=== PATIENT | female | born 1945 | race Caucasian/White ===

== ENCOUNTER 2016-05-01 11:28 | Inpatient (IN) | payer MEDICARE, OTHER ==
[~2016-05-01 11:28] MED LIST: ASPIR 8181 MG PO; ATORVASTATIN CA20 MG PO; ELIQUIS2.5 MG PO; FOLIC ACID 1 MG1 MG PO; FOLIC ACID0.4 MG PO; GLUCOSAMINE &1 EAC1 PO; GLUCOSAMINE CH1 EAC6 PO; IMDUR ER TAB 3030 MG PO; LIPITOR20 MG PO; LISINOPRIL5 MG PO; LOPRESSOR 25 MG25 MG PO; LYRICA20 MG/1 ML PO; LYRICA200 MG PO; METHOTREXATE T2.5 MG PO; OMEPRAZOLE40 MG PO; PERCOCET 5-3251 EACH PO; PREDNISONE 5 MG5 MG PO; PREDNISONE5 MG PO; RESTASIS1 EACH OP; ROPINIROLE HCL0.5 MG PO; SENOKOT-S TABL1 EACH PO; SERTRALINE HCL100 MG PO; VITAMIN D 11000 UNIT PO; VOLTAREN100 GM TP; WOMEN'S DAILY1 EACH PO; WOMEN'S MULTI200 MCG PO; ZANAFLEX 4 MG TA4 MG PO; ZANAFLEX4 M1 PO; ZOFRAN4 MG PO
[2016-05-01 19:16] LABS: HEMOGLOBIN 12.1 gm/dl (12.3-15.3); RED BLOOD COUNT 3.88 M/UL (4.00-5.10); WHITE BLOOD COUNT 9.3 K/UL (4.5-11.0)
[2016-05-01 19:29] LABS: BUN/CREATININE RATIO 23 (0-10)
[2016-05-02 07:02] LABS: RED BLOOD COUNT 3.55 M/UL (4.00-5.10)
[2016-05-02 07:08] LABS: WHITE BLOOD COUNT 6.2 K/UL (4.5-11.0)
[2016-05-02 07:35] LABS: BUN/CREATININE RATIO 27 (0-10)
[2016-05-03 05:21] LABS: HEMOGLOBIN 11.5 gm/dl (12.3-15.3); RED BLOOD COUNT 3.7 M/UL (4.00-5.10)
[2016-05-03 05:22] LABS: WHITE BLOOD COUNT 8.3 K/UL (4.5-11.0)
[2016-05-03 05:38] LABS: BUN/CREATININE RATIO 26 (0-10)
[2016-05-03 17:53] LABS: HEMOGLOBIN 8.6 gm/dl (12.3-15.3)
[2016-05-04 03:59] LABS: RED BLOOD COUNT 3.62 M/UL (4.00-5.10)
[2016-05-04 04:00] LABS: HEMOGLOBIN 10.6 gm/dl (12.3-15.3); WHITE BLOOD COUNT 11.2 K/UL (4.5-11.0)
[2016-05-04 04:19] LABS: BUN/CREATININE RATIO 23 (0-10)
[2016-05-05 03:56] LABS: HEMOGLOBIN 8.8 gm/dl (12.3-15.3); WHITE BLOOD COUNT 9.8 K/UL (4.5-11.0)
[2016-05-05 04:13] LABS: BUN/CREATININE RATIO 25 (0-10)
[2016-05-05 09:57] LABS: HEMOGLOBIN 9.4 gm/dl (12.3-15.3)
[2016-05-06 05:44] LABS: HEMOGLOBIN 8.6 gm/dl (12.3-15.3); RED BLOOD COUNT 2.95 M/UL (4.00-5.10); WHITE BLOOD COUNT 10.5 K/UL (4.5-11.0)
[2016-05-06 06:08] LABS: BUN/CREATININE RATIO 24 (0-10)
[2016-05-07 05:50] LABS: HEMOGLOBIN 8.7 gm/dl (12.3-15.3); RED BLOOD COUNT 2.97 M/UL (4.00-5.10)
[2016-05-07 06:06] LABS: BUN/CREATININE RATIO 25 (0-10)
[2016-05-08 05:45] LABS: HEMOGLOBIN 9.1 gm/dl (12.3-15.3); RED BLOOD COUNT 3.1 M/UL (4.00-5.10); WHITE BLOOD COUNT 10.1 K/UL (4.5-11.0)
[2016-05-08] MEDS ORDERED: IRON325 M1 PO (15:09)
== END 2016-05-08 15:57 | disposition home health service (06) | DRG 470 ==
LOC: M/S 11:28 → CCU 14:46 → ZEROF 14:46 → M/S 14:46 → CCU 05-03 15:19 → M/S 05-05 18:16
PROVIDERS: Emergency Medicine; Orthopaedic Surgery; Physician Assistant; ADMIT Internal Medicine
PROC: 0QP704Z Removal of Internal Fixation Device from Left Upper Femur, Open Approach (ICD-10-PCS; 2016-05-03)
PROC: 30233H0 Transfusion of Autologous Whole Blood into Peripheral Vein, Percutaneous Approach (ICD-10-PCS; 2016-05-03)
PROC: 3E0T3CZ (ICD-10-PCS; 2016-05-03)
PROC: 30233N1 Transfusion of Nonautologous Red Blood Cells into Peripheral Vein, Percutaneous Approach (ICD-10-PCS; 2016-05-03)
PROC: 30233N1 Transfusion of Nonautologous Red Blood Cells into Peripheral Vein, Percutaneous Approach (ICD-10-PCS; 2016-05-03)
PROC: 0SRB02A Replacement of Left Hip Joint with Metal on Polyethylene Synthetic Substitute, Uncemented, Open Approach (ICD-10-PCS; principal; 2016-05-03 11:00)
DX: T84.115A Breakdown (mechanical) of internal fixation device of left femur, initial encounter (principal); D62 Acute posthemorrhagic anemia; E27.40 Unspecified adrenocortical insufficiency; T84.84XA Pain due to internal orthopedic prosthetic devices, implants and grafts, initial encounter; Y79.3 Surgical instruments, materials and orthopedic devices (including sutures) associated with adverse incidents; S72.142D Displaced intertrochanteric fracture of left femur, subsequent encounter for closed fracture with routine healing; X58.XXXD Exposure to other specified factors, subsequent encounter; M06.9 Rheumatoid arthritis, unspecified; I25.10 Atherosclerotic heart disease of native coronary artery without angina pectoris; I95.2 Hypotension due to drugs; T40.2X5A Adverse effect of other opioids, initial encounter; I35.0 Nonrheumatic aortic (valve) stenosis; I10 Essential (primary) hypertension; E78.5 Hyperlipidemia, unspecified; D50.9 Iron deficiency anemia, unspecified; G47.33 Obstructive sleep apnea (adult) (pediatric); M79.7 Fibromyalgia; M85.852 Other specified disorders of bone density and structure, left thigh; E66.9 Obesity, unspecified; Z68.38 Body mass index [BMI] 38.0-38.9, adult; F41.9 Anxiety disorder, unspecified; Z87.891 Personal history of nicotine dependence; Z95.5 Presence of coronary angioplasty implant and graft; Z79.01 Long term (current) use of anticoagulants; Z79.84 Long term (current) use of oral hypoglycemic drugs; Z79.82 Long term (current) use of aspirin; Z79.899 Other long term (current) drug therapy; Z79.52 Long term (current) use of systemic steroids; Z79.891 Long term (current) use of opiate analgesic; Z88.3 Allergy status to other anti-infective agents; Z96.652 Presence of left artificial knee joint; Z90.710 Acquired absence of both cervix and uterus; Z98.890 Other specified postprocedural states; Z80.1 Family history of malignant neoplasm of trachea, bronchus and lung
CPT/HCPCS: 36415; 72170; 73552; 80048; 80053; 83735; 85014; 85018; 85025; 85027; 86850; 86900; 86901; 86920; 94660; 97110; 97116; 97530; 97535; C1713; C1776; J0690; J1100; J1200; J1644; J1720; J1756; J2250; J2270; J2370; J2405; J2795; J3010; J3370; J7040; J7050; J7120; J8610; P9016; Q0162; Q0163

== ENCOUNTER → 2016-05-29 | Outpatient (CLI) | payer MEDICARE, OTHER ==
[~2016-05-29] MED LIST changes: +FLEXERIL 10 MG10 MG PO; +FOSAMAX70 MG PO; +IRON325 M1 PO; +ISOSORBIDE MONO30 MG PO; +LISINOPRIL10 MG PO
== END ==
LOC: KOH-I 10:50
DX: I82.402 Acute embolism and thrombosis of unspecified deep veins of left lower extremity (principal); I82.442 Acute embolism and thrombosis of left tibial vein
CPT/HCPCS: 93971

== ENCOUNTER 2016-05-30 22:41 | Emergency (ER) | payer MEDICARE, OTHER ==
[~2016-05-30 22:41] MED LIST changes: -FLEXERIL 10 MG10 MG PO; -FOSAMAX70 MG PO; -ISOSORBIDE MONO30 MG PO; -LISINOPRIL10 MG PO
== END 2016-05-31 03:34 | disposition home or self-care (01) ==
LOC: ER1 22:41
DX: K02.9 Dental caries, unspecified (principal); F17.210 Nicotine dependence, cigarettes, uncomplicated
CPT/HCPCS: 72128; 72131; 81001; 87086; 96374; 96375; 96376; 99284; J2270; J2405

== ENCOUNTER 2016-06-25 09:32 | Observation (INO) | payer MEDICARE, OTHER ==
[~2016-06-25] VITALS: Ht 149.9 cm; Wt 86.2 kg
[2016-06-25 15:36] LABS: HEMOGLOBIN 14.3 gm/dl (12.3-15.3); RED BLOOD COUNT 4.8 M/UL (4.00-5.10); WHITE BLOOD COUNT 7.5 K/UL (4.5-11.0)
[2016-06-25 15:53] LABS: BUN/CREATININE RATIO 23 (0-10)
[2016-06-25] MEDS ORDERED: LISINOPRIL10 MG PO (18:37)
[2016-06-25] MEDS ORDERED: LOPRESSOR 25 MG25 MG PO (18:38)
[2016-06-25] MEDS ORDERED: FLEXERIL 10 MG10 MG PO (18:42)
[2016-06-25] MEDS ORDERED: ISOSORBIDE MONO30 MG PO (18:44)
[2016-06-26 07:01] LABS: HEMOGLOBIN 15.3 gm/dl (12.3-15.3); RED BLOOD COUNT 5.06 M/UL (4.00-5.10); WHITE BLOOD COUNT 7.9 K/UL (4.5-11.0)
[2016-06-26 07:19] LABS: BUN/CREATININE RATIO 22 (0-10)
[2016-06-27] MEDS ORDERED: PERCOCET 5-3251 EACH PO (18:24)
[2016-06-27] MEDS ORDERED: FOSAMAX70 MG PO (18:25)
--- NOTE | 2016-06-27 19:47 | NUR ---
1730 ORTHO VS LAYING 108/70 HR 78 SPO2 100 SITTING 114/74 HR 83 SPO2 100 STANDING 106/64 HR 62 SPO2 100 MD ASIF CALLED AND NOTIFIED CONT WITH DC HOME NO NEW ORDERS
== END 2016-06-27 20:25 | disposition home or self-care (01) ==
LOC: ER1 09:32 → ZEROF 14:45 → MED SURG 4 14:45
PROVIDERS: Emergency Medicine; ADMIT Internal Medicine
PROC: 0PS43ZZ Reposition Thoracic Vertebra, Percutaneous Approach (ICD-10-PCS; principal; 2016-06-25)
PROC: 0PU43JZ Supplement Thoracic Vertebra with Synthetic Substitute, Percutaneous Approach (ICD-10-PCS; 2016-06-25)
PROC: 0QS03ZZ Reposition Lumbar Vertebra, Percutaneous Approach (ICD-10-PCS; 2016-06-25)
PROC: 0QU03JZ Supplement Lumbar Vertebra with Synthetic Substitute, Percutaneous Approach (ICD-10-PCS; 2016-06-25)
DX: S22.089A Unspecified fracture of T11-T12 vertebra, initial encounter for closed fracture (principal); S32.019A Unspecified fracture of first lumbar vertebra, initial encounter for closed fracture; S32.029A Unspecified fracture of second lumbar vertebra, initial encounter for closed fracture; M81.0 Age-related osteoporosis without current pathological fracture; M06.9 Rheumatoid arthritis, unspecified; I10 Essential (primary) hypertension; I25.10 Atherosclerotic heart disease of native coronary artery without angina pectoris; K21.9 Gastro-esophageal reflux disease without esophagitis; E66.9 Obesity, unspecified; G89.29 Other chronic pain; M19.90 Unspecified osteoarthritis, unspecified site; W19.XXXA Unspecified fall, initial encounter; Z87.891 Personal history of nicotine dependence; Z79.52 Long term (current) use of systemic steroids; Z79.899 Other long term (current) drug therapy; Z90.710 Acquired absence of both cervix and uterus; Z98.890 Other specified postprocedural states
CPT/HCPCS: 12001; 36415; 70450; 71010; 72125; 72131; 73501; 73502; 73522; 80048; 80053; 85025; 85610; 93005; 96374; 96375; 96376; 97530; 99285; C9113; G0378; J0690; J1100; J2270; J2405; J7120; J8610; Q0162; Q9962

== ENCOUNTER → 2016-08-15 | Outpatient (CLI) | payer MEDICARE, OTHER ==
[~2016-08-15] MED LIST changes: +FLEXERIL 10 MG10 MG PO; +FOSAMAX70 MG PO; +ISOSORBIDE MONO30 MG PO; +LISINOPRIL10 MG PO
== END ==
LOC: HEART 5 13:27
DX: I35.0 Nonrheumatic aortic (valve) stenosis (principal)
CPT/HCPCS: 93306

== ENCOUNTER 2020-10-18 10:14 | Emergency (ER) | payer MEDICARE, OTHER ==
[~2020-10-18 10:14] MED LIST changes: +BENTYL 10MG CAP10 MG PO; +BUMETANIDE1 MG PO; +COUMADIN2.5 MG PO; +ECOTRIN81 MG PO; +ELIQUIS5 MG PO; +LEVAQUIN750 MG PO; -LISINOPRIL10 MG PO; +METHOTREXA25 MG/1 M6 IM; -METHOTREXATE T2.5 MG PO; +NORCO 5-325 TA1 EACH PO; +PRINIVIL5 MG PO; +RESTASIS 0.05%1 EACH OD; +TESSALON PERLE100 MG PO; +TOPROL XL25 MG PO; +ZANAFLEX4 MG PO
[2020-10-18 11:16] LABS: HEMOGLOBIN 13.4 gm/dl (12.3-15.3); RED BLOOD COUNT 4.43 M/UL (4.00-5.10); WHITE BLOOD COUNT 7.3 K/UL (4.5-11.0)
[2020-10-18 11:42] LABS: BUN/CREATININE RATIO 20 (0-10)
== END 2020-10-18 15:37 | disposition home or self-care (01) ==
LOC: ER1 10:14
PROVIDERS: Physician Assistant
DX: R25.3 Fasciculation (principal); R42 Dizziness and giddiness; G47.9 Sleep disorder, unspecified; Z79.01 Long term (current) use of anticoagulants; I11.0 Hypertensive heart disease with heart failure; I50.9 Heart failure, unspecified; Z20.822 Contact with and (suspected) exposure to COVID-19; Z87.39 Personal history of other diseases of the musculoskeletal system and connective tissue; Z79.899 Other long term (current) drug therapy
CPT/HCPCS: 0240U; 70450; 71045; 80053; 81001; 82140; 82550; 82553; 83605; 83735; 83874; 84484; 85025; 85610; 87040; 93005; 99284; G0480; J7030

== ENCOUNTER → 2020-11-08 | Outpatient (CLI) | payer MEDICARE, OTHER | LOC: HEART 5 10-25 13:00 | DX: R06.02 Shortness of breath (principal) | CPT/HCPCS: 93306 ==

== ENCOUNTER 2021-10-29 10:29 | Inpatient (IN) | payer MEDICARE, OTHER ==
[~2021-10-29] VITALS: Ht 147.3 cm; Wt 70.9 kg
[~2021-10-29 10:29] MED LIST changes: -METHOTREXA25 MG/1 M6 IM; +METHOTREXATE T2.5 MG PO
[2021-10-29 11:48] LABS: HEMOGLOBIN 13.6 gm/dl (12.3-15.3); RED BLOOD COUNT 4.54 M/UL (4.00-5.10); WHITE BLOOD COUNT 9.2 K/UL (4.5-11.0)
[2021-10-29 12:23] LABS: BUN/CREATININE RATIO 26 (0-10)
[2021-10-29] MEDS ORDERED: DICYCLOMINE HCL10 MG PO (17:11)
[2021-10-29 22:27] LABS: BUN/CREATININE RATIO 27 (0-10)
[2021-10-30 06:23] LABS: RED BLOOD COUNT 4.08 M/UL (4.00-5.10); WHITE BLOOD COUNT 4.7 K/UL (4.5-11.0)
[2021-10-30 06:58] LABS: BUN/CREATININE RATIO 28 (0-10)
[2021-10-30] MEDS ORDERED: WARFARIN SODIU2.5 MG PO (10:28)
[2021-10-30] MEDS ORDERED: WARFARIN SODIUM5 MG PO (10:29)
[2021-10-30 18:25] LABS: HEMOGLOBIN 11.4 gm/dl (12.3-15.3); RED BLOOD COUNT 3.83 M/UL (4.00-5.10)
[2021-10-30 18:26] LABS: WHITE BLOOD COUNT 7.1 K/UL (4.5-11.0)
[2021-10-31 11:21] LABS: HEMOGLOBIN 11.2 gm/dl (12.3-15.3); RED BLOOD COUNT 3.85 M/UL (4.00-5.10); WHITE BLOOD COUNT 6.8 K/UL (4.5-11.0)
[2021-10-31 11:45] LABS: BUN/CREATININE RATIO 37 (0-10)
[2021-11-01 02:27] LABS: HEMOGLOBIN 9.9 gm/dl (12.3-15.3); WHITE BLOOD COUNT 8.5 K/UL (4.5-11.0)
[2021-11-01 02:34] LABS: RED BLOOD COUNT 3.33 M/UL (4.00-5.10)
[2021-11-01 03:21] LABS: BUN/CREATININE RATIO 50 (0-10)
[2021-11-02 03:26] LABS: HEMOGLOBIN 10.2 gm/dl (12.3-15.3); RED BLOOD COUNT 3.48 M/UL (4.00-5.10); WHITE BLOOD COUNT 8.8 K/UL (4.5-11.0)
[2021-11-02 04:00] LABS: BUN/CREATININE RATIO 45 (0-10)
[2021-11-02] MEDS ORDERED: WARFARIN SODIUM5 MG PO (15:33)
[2021-11-02] MEDS ORDERED: JANTOVEN1 MG PO (15:33)
[2021-11-02] MEDS ORDERED: LASIX20 MG PO (15:36)
[2021-11-02] MEDS ORDERED: AMOX TR-K CLV1 EAC4 PO (17:39)
[2021-11-02] MEDS ORDERED: LEVOFLOXACIN750 MG PO (17:39)
[2021-11-02] MEDS ORDERED: K-TAB ER10 MEQ PO (18:14)
== END 2021-11-02 19:17 | disposition home health service (06) | DRG 193 ==
LOC: ER1 10:29 → M/S 16:18 → CDU 16:18 → M/S 20:41
PROVIDERS: Internal Medicine; Physician Assistant; ADMIT Internal Medicine
PROC: 8E0ZXY6 Isolation (ICD-10-PCS; principal; 2021-10-30)
PROC: XW033E5 Introduction of Remdesivir Anti-infective into Peripheral Vein, Percutaneous Approach, New Technology Group 5 (ICD-10-PCS; 2021-10-30)
PROC: 3E0333Z Introduction of Anti-inflammatory into Peripheral Vein, Percutaneous Approach (ICD-10-PCS; 2021-10-30)
PROC: 5A09457 Assistance with Respiratory Ventilation, 24-96 Consecutive Hours, Continuous Positive Airway Pressure (ICD-10-PCS; 2021-10-30)
PROC: B24BZZZ Ultrasonography of Heart with Aorta (ICD-10-PCS; 2021-11-01)
DX: J15.9 Unspecified bacterial pneumonia (principal); J96.01 Acute respiratory failure with hypoxia; I50.32 Chronic diastolic (congestive) heart failure; E87.2 Acidosis; E86.0 Dehydration; K21.9 Gastro-esophageal reflux disease without esophagitis; E83.52 Hypercalcemia; M06.9 Rheumatoid arthritis, unspecified; F41.9 Anxiety disorder, unspecified; I11.0 Hypertensive heart disease with heart failure; F32.A Depression, unspecified; I25.10 Atherosclerotic heart disease of native coronary artery without angina pectoris; G62.9 Polyneuropathy, unspecified; Z95.5 Presence of coronary angioplasty implant and graft; Z90.710 Acquired absence of both cervix and uterus; Z95.4 Presence of other heart-valve replacement; Z98.890 Other specified postprocedural states; Z87.891 Personal history of nicotine dependence
CPT/HCPCS: ECHO; 36415; 71045; 71250; 80048; 80053; 82550; 82553; 83605; 83735; 83880; 84100; 84484; 85025; 85027; 85610; 85652; 85730; 86140; 87040; 93005; 93306; 94660; 94760; 97110; 97161; 99285; J0248; J0692; J1100; J1644; J1650; J1940; J2185; J2405; J7030; M0222; U0002